=== PATIENT | male | born 1975 | race Caucasian/White ===

== ENCOUNTER → 2018-04-06 | Outpatient (CLI) | payer MEDICAID ==
[~2018-04-06] VITALS: Ht 182.9 cm; Wt 74.8 kg
[~2018-04-06] MED LIST: AC500T PO; ACHD5005 PO; CATHETER FLUSH 10 ML SYR IV PRN; CELEXA; CIME-48 PO; CITA20TA12 PO; CPR500T PO; CTLP20T; DOXY100C2 PO; GI COCKTAIL PO; HYDR-1231 PO; HYDR-2962 PO; IBUP-15 PO; LAMICTAL; LAMO100T69; ONDA8TAB9 PO; PNT40TEC PO; POLY17PO23 GT; PRED20TA PO; PRM25T PO; PROM12.59 PO; SIME125T9 PO
[2018-04-06 09:00] VITALS: BP 111/70
[2018-04-06 09:03] VITALS: BP 121/68
--- NOTE | 2018-04-12 12:12 | STRESS TEST ---
DATE OF SERVICE: 04/06/2018 RESTING AND POST REGADENOSON TECHNETIUM-99M TETROFOSMIN SPECT CT IMAGING ORDERING PHYSICIAN: Alyson Velazquez APRN. PRIMARY PHYSICIAN: [facility]. CLINICAL DIAGNOSES: Chest discomfort, palpitations. Baseline images were carried out after injection of 10.21 mCi of technetium-99m Tetrofosmin. This was followed by exercise on a treadmill. Grzegorz protocol was employed. Heart rate response to exercise was normal. Blood pressure response to exercise was normal. At peak exercise, there was a considerable baseline artifact, but there did not appear to be a significant ST segment deviation. No significant arrhythmia was seen. The test was stopped on account of fatigue. The patient did not report chest discomfort. He exercised for a total of 13 minutes and 21 seconds in the Grzegorz protocol. He attained 94% of maximum predicted heart rate and 13.9 METS of workload. A 29.3 mCi of technetium-99m Tetrofosmin were injected at peak exercise and the exercise was continued for another minute. Review of images at rest and following stress does not indicate any significant perfusion defects consistent with significant myocardial ischemia or infarction. Gated images show a normal global left ventricular systolic function, normal regional wall motion. Left ventricular ejection fraction is calculated to be 61%. Left ventricular end diastolic volume is 70 mL. TID is absent (0.92). CONCLUSIONS: 1. No evidence of any significant myocardial ischemia or infarction on this study. 2. Normal regional wall motion. 3. Normal global left ventricular systolic function with a calculated ejection fraction of 61%. Job ID: [id number] DocumentID: [id number] Dictated Date: 04/12/2018 11:51:53 [employer] Specialist Date: 04/12/2018 12:11:06 Dictated By: NATHALIE VAZQUEZ MD, MA, FACP, FACC,
== END ==
LOC: CARD 07:01
PROVIDERS: ATTEND Nurse Practitioner Family
DX: R07.9 Chest pain, unspecified (principal); R00.2 Palpitations; E78.2 Mixed hyperlipidemia; Z72.0 Tobacco use
CPT/HCPCS: 78452; 93017

== ENCOUNTER → 2018-04-27 | Outpatient (CLI) | payer MEDICAID ==
[~2018-04-27] MED LIST changes: -CATHETER FLUSH 10 ML SYR IV PRN
== END ==
LOC: CARD 12:30
PROVIDERS: ATTEND Nurse Practitioner Family
DX: R07.9 Chest pain, unspecified (principal); R00.2 Palpitations; E78.2 Mixed hyperlipidemia; Z72.0 Tobacco use
CPT/HCPCS: 93306

== ENCOUNTER 2019-03-03 20:41 | Emergency (ER) | payer SELFPAY ==
[~2019-03-03] VITALS: Ht 180.3 cm; Wt 84.1 kg
[2019-03-03] MEDS ORDERED: NS IV 1000 ML 1,000 ML IV ONE (20:50)
[2019-03-03 21:08] LABS: BILIRUBIN,URINE NEGATIVE (NEGATIVE); CLARITY,URINE CLEAR; COLOR,URINE YELLOW; GLUCOSE, URINE (UA) NEGATIVE (NEGATIVE); KETONES,URINE NEGATIVE (NEGATIVE); LEUKOCYTE ESTERASE ,URINE 1+ (NEGATIVE); NITRITE,URINE NEGATIVE (NEGATIVE); PH,URINE 6 (5-9); PROTEIN,URINE 1+ (NEGATIVE)
[2019-03-03 21:10] LABS: BASOPHILS # (AUTO) 0.1 10^3/uL (0.0-0.1); BASOPHILS % (AUTO) 1 % (0-10); EOSINOPHILS # (AUTO) 0.3 10^3/uL (0.0-0.3); EOSINOPHILS % (AUTO) 3 % (0-10); HEMATOCRIT 47 % (40-54); HEMOGLOBIN 16.1 G/DL (13.3-17.7); LYMPHOCYTES # (AUTO) 4.4 X 10^3 (1.0-4.0); LYMPHOCYTES % (AUTO) 36 % (12-44); MEAN CORPUSCULAR HEMOGLOBIN 32 PG (25-34); MEAN CORPUSCULAR HGB CONC 35 G/DL (32-36); MEAN CORPUSCULAR VOLUME 92 FL (80-99); MEAN PLATELET VOLUME 9.4 FL (7.4-10.4); MONOCYTES # (AUTO) 0.8 X 10^3 (0.0-1.0); MONOCYTES % (AUTO) 7 % (0-12); NEUTROPHILS # (AUTO) 6.5 X 10^3 (1.8-7.8); NEUTROPHILS % (AUTO) 54 % (42-75); PLATELET COUNT 307 10^3/uL (130-400); RED CELL DISTRIBUTION WIDTH 12.7 % (10.0-14.5); WHITE BLOOD COUNT 12.1 10^3/uL (4.3-11.0)
[2019-03-03] MEDS ORDERED: DEXL60CA PO (21:10)
[2019-03-03] MEDS ORDERED: CETI10CA PO (21:10)
[2019-03-03] MEDS ORDERED: MELO7.5T46 (21:10)
[2019-03-03] MEDS ORDERED: ASPI-808 PO (21:10)
[2019-03-03 21:15] LABS: BACTERIA,URINE TRACE /HPF; RBC,URINE 0-2 /HPF; SQUAMOUS EPITHELIAL CELL,UR RARE /HPF; WBC,URINE RARE /HPF
[2019-03-03] MEDS ORDERED: KETOROLAC 30 MG/ML VIAL IVP STA (21:23)
[2019-03-03] MEDS ORDERED: ONDANSETRON 4 MG/2 ML (SDV) Z0FRAN IVP ONE (21:30)
[2019-03-03 21:37] LABS: ALANINE AMINOTRANSFERASE 23 U/L (0-55); ALBUMIN 4.4 GM/DL (3.2-4.5); ALKALINE PHOSPHATASE 94 U/L (40-136); BILIRUBIN,TOTAL 0.2 MG/DL (0.1-1.0); BUN/CREATININE RATIO 14; CARBON DIOXIDE 24 MMOL/L (21-32); CHLORIDE 104 MMOL/L (98-107); CREATININE SERUM 1.03 MG/DL (0.60-1.30); GFR ESTIMATED > 60; GLUCOSE 101 MG/DL (70-105); POTASSIUM 3.8 MMOL/L (3.6-5.0); SODIUM 141 MMOL/L (135-145); TOTAL PROTEIN 7.4 GM/DL (6.4-8.2)
--- NOTE | 2019-03-03 22:05 | Diagnostic Imaging Report ---
INDICATION: Right flank pain. FINDINGS: KUB. No calculi are seen overlying the kidneys or along the ureteral paths. There are several phleboliths in the pelvis. These are unchanged when compared with previous KUB of 07/17/2014. Bowel gas pattern is normal. There is no evidence of constipation. No obstruction noted. No bony abnormalities. IMPRESSION: Normal KUB. Dictated by: Dictated on workstation # [id number]
--- NOTE | 2019-03-03 22:11 | ED GU-Male ---
General Chief Complaint: Back Problems Stated Complaint: BACK PAIN,KIDNEY STONE SYMPTOMS Nursing Triage Note: intermittant right flank pain x1 week, worse today. History of Present Illness Date Seen by Provider: Mar 03, 2019 Time Seen by Provider: 21:00 Initial Comments 43-year-old male presents for right flank pain. He's had kidney stone on multiple occasions and sees Dr. Yanes. Taking Phenergan at home with no improvement in symptoms. Timing/Duration: getting worse, intermittent Severity/Quality: severe Location: right flank Associated Symptoms: abdominal pain, dysuria; No loss of bladder control, No lower back pain; nausea/vomiting Allergies and Home Medications Allergies Coded Allergies: naproxen (Unverified Allergy, Severe, HIVES, 10/31/14) meperidine (Unverified Allergy, Unknown, HIVES, 10/31/14) morphine (Verified Adverse Reaction, Severe, CAUSES SEVERE NAUSEA, 01/23/13) LIQUID FORMS promethazine (Unverified Adverse Reaction, Unknown, N/V, 10/31/14) IV FORM ET CAN TAKE PO Home Medications Promethazine Hcl 12.5 Mg Tablet, 25 MG PO PRN, (Reported) Patient Home Medication List Home Medication List Reviewed: Yes Review of Systems Review of Systems Constitutional: no symptoms reported, see HPI Genitourinary: see HPI; denies dysuria; flank pain; denies hematuria All Other Systemes Reviewed Negative Unless Noted: Yes Past Dzivfee-Zudhux-Dkipca Hx Past Med/Social Hx: Reviewed Nursing Past Med/Soc Hx Patient Social History Alcohol Use: Denies Use Recreational Drug Use: No Drug of Choice: denies Smoking Status: Current Everyday Smoker Type Used: Cigarettes 2nd Hand Smoke Exposure: Yes Recent Foreign Travel: No Contact w/Someone Who Travel: No Recent Infectious Disease Expo: No Recent Hopitalizations: No Physical Abuse: No Sexual Abuse: No Mistreated: No Fear: No Immunizations Up To Date Tetanus Booster (TDap): Unknown Seasonal Allergies Seasonal Allergies: Yes Past Medical History Surgeries: Yes (LITHOTRIPSY, HEMORROIDECTOMY, gastric sleeve) Appendectomy Respiratory: No Cardiac: No Neurological: No Reproductive Disorders: No Genitourinary: Yes Kidney Infection, Kidney Stones Gastrointestinal: No Musculoskeletal: No Endocrine: No HEENT: No Cancer: No Psychosocial: Yes Anxiety Integumentary: No Blood Disorders: No Family Medical History No Pertinent Family Hx Physical Exam Vital Signs Vital Signs - First Documented 03/03/19 20:51 Temp 36.4 Pulse 90 Resp 18 B/P (MAP) 129/80 (96) Pulse Ox 95 O2 Delivery Room Air Capillary Refill : Less Than 3 Seconds Height, Weight, BMI Height: 6'0.00" Weight: 165lbs. 0.0oz. [id number]; 25.00 BMI Method:Stated General Appearance: WD/WN, no apparent distress Cardiovascular: normal peripheral pulses, regular rate, rhythm Respiratory: chest non-tender, lungs clear, normal breath sounds Gastrointestinal: normal bowel sounds, soft; No rebound; tenderness (. Lower quadrant) Back: normal inspection, CVA tenderness (R) Neurologic/Psychiatric: no motor/sensory deficits, alert, normal mood/affect, o riented x 3 Skin: normal color, warm/dry Progress/Results/Core Measures Suspected Sepsis Recent Fever Within 48 Hours: No Infection Criteria Present: None New/Unexplained Altered Menta: No Sepsis Screen: No Definite Risk SIRS Temperature: Pulse: 90 Respiratory Rate: 18 Laboratory Tests 03/03/19 21:00: White Blood Count 12.1H Blood Pressure 129 /80 Mean: 96 Laboratory Tests 03/03/19 21:00: Creatinine 1.03, Platelet Count 307, Total Bilirubin 0.2 Results/Orders Lab Results Laboratory Tests Test 03/03/19 20:57 03/03/19 21:00 Range/Units Urine Color YELLOW Urine Clarity CLEAR Urine pH 6 5-9 Urine Specific [place] 1.020 1.016-1.022 Urine Protein 1+ H NEGATIVE Urine Glucose (UA) NEGATIVE NEGATIVE Urine Ketones NEGATIVE NEGATIVE Urine Nitrite NEGATIVE NEGATIVE Urine Bilirubin NEGATIVE NEGATIVE Urine Urobilinogen NORMAL NORMAL MG/DL Urine Leukocyte Esterase 1+ H NEGATIVE Urine RBC (Auto) 2+ H NEGATIVE Urine RBC 0-2 /HPF Urine WBC RARE /HPF Urine Squamous Epithelial Cells RARE /HPF Urine Crystals NONE /LPF Urine Bacteria TRACE /HPF Urine Casts NONE /LPF Urine Mucus SMALL H /LPF Urine Culture Indicated NO White Blood Count 12.1 H 4.3-11.0 10^3/uL Red Blood Count 5.07 4.35-5.85 10^6/uL Hemoglobin 16.1 13.3-17.7 G/DL Hematocrit 47 40-54 % Mean Corpuscular Volume 92 80-99 FL Mean Corpuscular Hemoglobin 32 25-34 PG Mean Corpuscular Hemoglobin Concent 35 32-36 G/DL Red Cell Distribution Width 12.7 10.0-14.5 % Platelet Count 307 130-400 10^3/uL Mean Platelet Volume 9.4 7.4-10.4 FL Neutrophils (%) (Auto) 54 42-75 % Lymphocytes (%) (Auto) 36 12-44 % Monocytes (%) (Auto) 7 0-12 % Eosinophils (%) (Auto) 3 0-10 % Basophils (%) (Auto) 1 0-10 % Neutrophils # (Auto) 6.5 1.8-7.8 X 10^3 Lymphocytes # (Auto) 4.4 H 1.0-4.0 X 10^3 Monocytes # (Auto) 0.8 0.0-1.0 X 10^3 Eosinophils # (Auto) 0.3 0.0-0.3 10^3/uL Basophils # (Auto) 0.1 0.0-0.1 10^3/uL Sodium Level 141 135-145 MMOL/L Potassium Level 3.8 3.6-5.0 MMOL/L Chloride Level 104 98-107 MMOL/L Carbon Dioxide Level 24 21-32 MMOL/L Anion Gap 13 5-14 MMOL/L Blood Urea Nitrogen 14 7-18 MG/DL Creatinine 1.03 0.60-1.30 MG/DL Estimat Glomerular Filtration Rate > 60 BUN/Creatinine Ratio 14 Glucose Level 101 70-105 MG/DL Calcium Level 10.0 8.5-10.1 MG/DL Corrected Calcium 9.7 8.5-10.1 MG/DL Total Bilirubin 0.2 0.1-1.0 MG/DL Aspartate Amino Transf (AST/SGOT) 22 5-34 U/L Alanine Aminotransferase (ALT/SGPT) 23 0-55 U/L Alkaline Phosphatase 94 40-136 U/L Total Protein 7.4 6.4-8.2 GM/DL Albumin 4.4 3.2-4.5 GM/DL My Orders Orders - BRIANNA FISHER Ondansetron Injection (Zofran Injectio (03/03/19 21:30) Ketorolac Injection (Toradol Injection) (03/03/19 21:23) Abdomen/Kub 1view (03/03/19 21:24) Hydrocodone/Apap 7.5/325 Tab (Lortab 7. (03/03/19 22:15) Rx-Hydrocodone/Apap 5-325 Mg (Rx-Vicodin (03/03/19 22:15) Rx-Ondansetron Po (Rx-Zofran Po) (03/03/19 22:14) Medications Given in ED Current Medications Medications Dose Ordered Sig/Sunny Route Start Time Stop Time Status Last Admin Dose Admin Acetaminophen/ Hydrocodone Bitart 1 ea ONCE ONCE PO 03/03/19 22:15 03/03/19 22:16 DC 03/03/19 22:40 1 EA Acetaminophen/ Hydrocodone Bitart 1 ea Q6H PRN PO 03/03/19 22:15 03/03/19 22:41 DC 03/03/19 22:40 1 EA Ondansetron HCl 8 mg ONCE ONCE IVP 03/03/19 21:30 03/03/19 21:31 DC 03/03/19 21:29 8 MG Sodium Chloride 1,000 ml @ 0 mls/hr Q0M ONCE IV 03/03/19 20:50 03/03/19 20:51 DC 03/03/19 21:01 0 MLS/HR Vital Signs/I&O 03/03/19 03/03/19 20:51 22:38 Temp 36.4 36.5 Pulse 90 62 Resp 18 16 B/P (MAP) 129/80 (96) 112/74 (96) Pulse Ox 95 96 O2 Delivery Room Air Room Air Capillary Refill : Less Than 3 Seconds Blood Pressure Mean: 96 Diagnostic Imaging Diagonstic Imaging: Xray Plain Films/CT/US/NM/MRI: abdomen Comments NAME: ZULMA [facility]ONT [facility] REC#: [id number] PT STATUS: REG ER : 1975 PHYSICIAN: BRIANNA FISHERP ADMIT DATE: 03/03/19/ER Draft Date of Exam:03/03/19 ABDOMEN/KUB 1VIEW INDICATION: Right flank pain. FINDINGS: KUB. No calculi are seen overlying the kidneys or along the ureteral paths. There are several phleboliths in the pelvis. These are unchanged when compared with previous KUB of 07/17/2014. Bowel gas pattern is normal. There is no evidence of constipation. No obstruction noted. No bony abnormalities. IMPRESSION: Normal KUB. Dictated on workstation # [id number] Dict: 03/03/192155 Trans: 03/03/19 2204 [facility] [id number] Interpreted by: JEAN-PAUL CHOWDARY MD Electronically signed by: Reviewed: Reviewed by Me Departure Impression Primary Impression: Nephrolithiasis Disposition: HOME, SELF-CARE Condition: Improved Departure-Patient Inst. Decision time for Depature: 22:15 Referrals: [facility] [place] (PCP) Primary Care Physician JONNA NOVAK MD (Family) Primary Care Physician Patient Instructions: Renal Colic (DC) Add. Discharge Instructions: Increase water intake, 16 ounces every 2 hours while awake. Follow-up with Dr. Yanes in 2-3 days if symptoms are not improving or worsen. May take ibuprofen 600 mg every 8 hours for pain. For more significant pain take the hydrocodone one tablet every 6 hours. Zofran every 6-8 hours as needed for nausea and vomiting. Return to the emergency department for new, urgent health care needs. All discharge instructions reviewed with patient and/or family. Voiced understanding. Copy Copies To 1: KARLEY YANES MD, AMY ARNP Mar 03, 2019 22:11
[2019-03-03] MEDS ORDERED: RX-ONDANSETRON 4 MG ODT (ZOFRAN) PPK #4 PO STA (22:14)
[2019-03-03] MEDS ORDERED: RX-HYDROCODONE/APAP 5/325 MG #4 TAB PK PO PRN (22:15)
[2019-03-03] MEDS ORDERED: HYDROcodone/APAP 7.5 MG/325 MG (LORTAB, LORCET PLUS) TABLET PO ONE (22:15)
[2019-03-03 22:38] VITALS: BP 112/74
== END 2019-03-03 22:41 | disposition home or self-care (01) ==
LOC: EDUNIT# 20:41 → ER 20:42
DX: N20.0 Calculus of kidney (principal); F41.9 Anxiety disorder, unspecified; F17.210 Nicotine dependence, cigarettes, uncomplicated; Z90.49 Acquired absence of other specified parts of digestive tract; Z88.6 Allergy status to analgesic agent; Z88.5 Allergy status to narcotic agent
CPT/HCPCS: 36415; 74018; 80053; 81000; 85025; 96374; 96375